=== PATIENT | male | born 1985 | race Caucasian/White ===

== ENCOUNTER 2017-03-27 16:24 | Emergency (ER) | payer OTHER ==
[~2017-03-27] VITALS: Ht 177.8 cm; Wt 68.0 kg
[~2017-03-27 16:24] MED LIST: ACYCLOVIR200 MG PO; AMOXIL500 MG PO; CARE OT; CLARITIN10 MG PO; CYCLOBENZAPRINE10 MG PO; NAPROSYN500 MG PO; PERIDEX 480 ML480 ML PO
[2017-03-27] MEDS ORDERED: OMEPRAZOLE D/R20 MG PO (16:32)
[2017-03-27 16:55] LABS: BASO # 0.1 10*3/uL (0.0-0.1); BASO % 0.7 % (0.0-1.0); EOS # 0.1 10*3/uL (0.0-0.4); EOS % 1.2 % (1.0-4.0); HEMATOCRIT 41.8 % (42.0-52.0); HEMOGLOBIN 14.6 g/dl (14.0-18.0); LYMPH # 2.7 10*3/uL (1.3-4.4); LYMPH % 39.1 % (27.0-41.0); MEAN CELL VOLUME 92.7 fl (80.0-94.0); MEAN CORPUSCULAR HGB 32.4 pg (27.0-31.0); MEAN CORPUSCULAR HGB CONC 34.9 g/dl (33.0-37.0); MEAN PLATELET VOLUME 10.5 fl (9.6-12.3); MONO # 0.5 10*3/uL (0.1-1.0); NEUT # 3.5 10*3/uL (2.3-7.9); NEUT % 51.9 % (47.0-73.0); PLATELET COUNT AUTOMATED 290 10*3/uL (130-400); RED BLOOD COUNT 4.51 10*6/uL (4.50-5.90); RED CELL DISTRI WIDTH 11.9 % (0-14.5); WHITE BLOOD COUNT 6.8 10*3/uL (4.8-10.8)
[2017-03-27 17:05] LABS: PROTHROMBIN TIME 10.8 SECONDS (9.0-12.4)
[2017-03-27 17:12] LABS: ALBUMIN 4.2 gm/dl (3.1-4.5); ALKALINE PHOSPHATASE 58 U/L (45-117); BILIRUBIN, TOTAL 0.5 mg/dl (0.2-1.0); BUN 15 mg/dl (7-24); CARBON DIOXIDE 24 mmol/L (21-32); CHLORIDE 105 mmol/L (98-107); EST GLOM FILT AFRICAN AMERICAN > 60 ml/min; GLUCOSE 68 mg/dL (65-99); MAGNESIUM 2.1 mg/dL (1.5-2.1); POTASSIUM 3.6 mmol/L (3.5-5.1); SGOT/AST 14 IU/L (3-35); SGPT/ALT 26 U/L (12-78); SODIUM 138 mmol/L (136-145); TOTAL PROTEIN 7.6 gm/dL (6.4-8.2)
[2017-03-27 17:24] LABS: TROPONIN I < 0.015 ng/ml (<0.045)
[2017-03-27] MEDS ORDERED: ATARAX,VISTARIL50 MG PO (20:43)
[2017-03-27] MEDS ORDERED: KETOROLAC10 MG PO (20:43)
== END 2017-03-27 20:49 | disposition home or self-care (01) ==
LOC: ED 16:24
PROVIDERS: Emergency Medicine
DX: R07.89 Other chest pain (principal); F41.9 Anxiety disorder, unspecified; K21.9 Gastro-esophageal reflux disease without esophagitis; Z98.890 Other specified postprocedural states; Z79.899 Other long term (current) drug therapy

== ENCOUNTER 2018-08-31 08:36 | Emergency (ER) | payer OTHER ==
[~2018-08-31] VITALS: Ht 177.8 cm; Wt 74.8 kg
[~2018-08-31 08:36] MED LIST changes: +ATARAX,VISTARIL50 MG PO; +KETOROLAC10 MG PO; +OMEPRAZOLE D/R20 MG PO
== END 2018-08-31 09:35 | disposition home or self-care (01) ==
LOC: ED 08:36
DX: H61.21 Impacted cerumen, right ear (principal); Z79.899 Other long term (current) drug therapy

== ENCOUNTER 2022-10-06 16:41 | Emergency (ER) | payer OTHER ==
[~2022-10-06] VITALS: Ht 180.3 cm; Wt 77.1 kg
[2022-10-06 17:11] LABS: BASO # 0.1 10*3/uL (0.0-0.1); BASO % 1.1 % (0.0-1.0); EOS # 0.2 10*3/uL (0.0-0.4); EOS % 3.4 % (1.0-4.0); LYMPH # 2.8 10*3/uL (1.3-4.4); LYMPH % 40.3 % (27.0-41.0); MEAN CELL VOLUME 93.4 fl (80.0-94.0); MEAN CORPUSCULAR HGB 32.9 pg (27.0-31.0); MEAN CORPUSCULAR HGB CONC 35.2 g/dl (33.0-37.0); MEAN PLATELET VOLUME 9.9 fl (9.6-12.3); MONO # 0.6 10*3/uL (0.1-1.0); MONO % 7.8 % (3.0-9.0); NEUT # 3.3 10*3/uL (2.3-7.9); NEUT % 47.3 % (47.0-73.0); PLATELET COUNT AUTOMATED 297 10*3/uL (130-400); RED BLOOD COUNT 4.71 10*6/uL (4.50-5.90); RED CELL DISTRI WIDTH 11.3 % (0-14.5); WHITE BLOOD COUNT 7.1 10*3/uL (4.8-10.8)
[2022-10-06 17:27] LABS: ALKALINE PHOSPHATASE 72 U/L (45-117); BUN 13 mg/dl (7-24); CHLORIDE 104 mmol/L (98-107); CREATININE 0.77 mg/dL (0.70-1.30); LIPASE 102 U/L (73-393); POTASSIUM 3.7 mmol/L (3.5-5.1); SGOT/AST 14 IU/L (3-35); SGPT/ALT 29 U/L (12-78); SODIUM 137 mmol/L (136-145); TOTAL PROTEIN 8.3 gm/dL (6.4-8.2)
[2022-10-06 17:29] LABS: ACT PARTIAL THROMBO TIME 29.6 SECONDS (20.0-32.1)
== END 2022-10-06 18:01 | disposition home or self-care (01) ==
LOC: ED 16:41
PROVIDERS: Emergency Medicine
DX: R07.89 Other chest pain (principal); Z79.899 Other long term (current) drug therapy

== ENCOUNTER 2023-01-25 06:48 | Emergency (ER) | payer SELFPAY ==
[~2023-01-25] VITALS: Ht 180.3 cm; Wt 79.4 kg
[2023-01-25] MEDS ORDERED: PANTOPRAZOLE SO20 MG PO (06:55)
[2023-01-25] MEDS ORDERED: LOSARTAN POTASS25 M1 PO (06:55)
[2023-01-25] MEDS ORDERED: BUSPAR5 MG PO (06:55)
== END 2023-01-25 07:13 | disposition home or self-care (01) ==
LOC: ED 06:48
DX: K42.9 Umbilical hernia without obstruction or gangrene (principal); Z79.899 Other long term (current) drug therapy

== ENCOUNTER 2023-01-27 09:12 | Emergency (ER) | payer SELFPAY ==
[~2023-01-27] VITALS: Ht 177.8 cm; Wt 79.4 kg
[~2023-01-27 09:12] MED LIST changes: +BUSPAR5 MG PO; +LOSARTAN POTASS25 M1 PO; +PANTOPRAZOLE SO20 MG PO
[2023-01-27 10:09] LABS: BASO # 0.1 10*3/uL (0.0-0.1); EOS % 0.2 % (1.0-4.0); HEMATOCRIT 42.8 % (42.0-52.0); LYMPH # 1.4 10*3/uL (1.3-4.4); LYMPH % 26.4 % (27.0-41.0); MEAN CELL VOLUME 91.3 fl (80.0-94.0); MEAN PLATELET VOLUME 9.9 fl (9.6-12.3); MONO # 0.3 10*3/uL (0.1-1.0); MONO % 6.4 % (3.0-9.0); NEUT # 3.4 10*3/uL (2.3-7.9); PLATELET COUNT AUTOMATED 303 10*3/uL (130-400); RED BLOOD COUNT 4.69 10*6/uL (4.50-5.90); RED CELL DISTRI WIDTH 11.6 % (0-14.5); WHITE BLOOD COUNT 5.2 10*3/uL (4.8-10.8)
[2023-01-27 10:28] LABS: ALKALINE PHOSPHATASE 62 U/L (46-116); BUN 10 mg/dl (9-23); CHLORIDE 106 mmol/L (98-107); POTASSIUM 3.9 mmol/L (3.4-5.1); SGPT/ALT 22 U/L (10-49); TOTAL PROTEIN 7.3 gm/dL (6.0-8.0)
== END 2023-01-27 12:23 | disposition home or self-care (01) ==
LOC: ED 09:12
PROVIDERS: Student in an Organized Health Care Education/Training Program
DX: R53.83 Other fatigue (principal); G47.00 Insomnia, unspecified; F41.9 Anxiety disorder, unspecified; Z98.890 Other specified postprocedural states

== ENCOUNTER → 2023-06-11 | Outpatient (CLI) | payer SELFPAY ==
[2023-06-11 10:04] LABS: BASO # 0.1 10*3/uL (0.0-0.1); BASO % 1.1 % (0.0-1.0); EOS # 0.1 10*3/uL (0.0-0.4); EOS % 1.8 % (1.0-4.0); HEMATOCRIT 45.3 % (42.0-52.0); LYMPH # 1.6 10*3/uL (1.3-4.4); LYMPH % 36.7 % (27.0-41.0); MEAN CELL VOLUME 91.5 fl (80.0-94.0); MEAN CORPUSCULAR HGB 31.3 pg (27.0-31.0); MEAN CORPUSCULAR HGB CONC 34.2 g/dl (33.0-37.0); MEAN PLATELET VOLUME 10.6 fl (9.6-12.3); MONO # 0.3 10*3/uL (0.1-1.0); MONO % 7.2 % (3.0-9.0); NEUT # 2.4 10*3/uL (2.3-7.9); PLATELET COUNT AUTOMATED 261 10*3/uL (130-400); RED BLOOD COUNT 4.95 10*6/uL (4.50-5.90); WHITE BLOOD COUNT 4.5 10*3/uL (4.8-10.8)
[2023-06-11 11:11] LABS: ALKALINE PHOSPHATASE 75 U/L (46-116); BUN 12 mg/dl (9-23); CHLORIDE 107 mmol/L (98-107); CHOLESTEROL 192 mg/dL (<200); LDL CHOLESTEROL 124 mg/dL (9-159); POTASSIUM 4.1 mmol/L (3.4-5.1); SGPT/ALT 34 U/L (10-49); TOTAL PROTEIN 7.6 gm/dL (6.0-8.0); TRIGLYCERIDES 55 mg/dl (<150)
== END | disposition home or self-care (01) ==
LOC: LAB 09:43
PROVIDERS: ATTEND Nurse Practitioner Family
DX: R23.3 Spontaneous ecchymoses (principal)